=== PATIENT | female | born 1965 | race Caucasian/White ===

== ENCOUNTER 2017-08-06 12:39 | Inpatient (IN) ==
[2017-08-06] MEDS ORDERED: *HR* LORazepam 2 MG/ML VIAL IM ONE ×3 (12:43→20:57)
[2017-08-06] MEDS ORDERED: Haloperidol Lactate 5 MG/ML VIAL IM ONE ×2 (12:44→20:08)
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
[2017-08-06 13:13] LABS: Bilirubin,Urine Negative (Negative); Blood,Urine Negative (Negative); Clarity,Urine Cloudy (Clear); Color,Urine Yellow (Yellow); Glucose,Urine (UA) Normal (Normal); Ketones,Urine Negative (Negative); Leukocyte Esterase,Urine Negative (Negative); Nitrite,Urine Negative (Negative); PH,Urine 5.5 pH Units (5.0-8.0); Protein,Urine 100 mg/dL (Neg-Trace); Urobilinogen,Urine Normal (Normal)
[2017-08-06 13:15] LABS: Bacteria,Urine None Seen per hpf (None-Few); Hyaline Casts,Urine Few per lpf (None-Few); RBC,Urine 0-3 per hpf (0-3); Squamous Epithelial Cell,Urine Many per lpf (None-Few)
[2017-08-06 13:18] LABS: Basophils % 0.3 %; Eosinophils % 0.3 %; Hematocrit 37.9 % (35.3-44.9); Hemoglobin 13.1 g/dL (11.5-15.4); Immature Granulocytes % 0.5 % (0-4); Lymphocytes # 0.9 K/mcL (0.6-4.6); Mean Corpuscular HGB Conc 34.6 g/dL (31.6-35.5); Mean Corpuscular Hemoglobin 33.2 pg (28.0-33.3); Mean Corpuscular Volume 95.9 fL (83.0-100.0); Mean Platelet Volume 10.1 fL (9.4-12.4); Monocytes # 0.4 K/mcL (0.0-1.3); Monocytes % 3.6 %; Neutrophils # 8.7 K/mcL (1.6-8.9); Platelet Count 218 K/mcL (140-400); Red Blood Count 3.95 M/mcL (3.82-4.97); Segmented Neutrophils % 86.3 %
[2017-08-06 13:35] LABS: BUN/Creatinine Ratio 18 (6-26); Blood Urea Nitrogen 18 mg/dL (6-20); Carbon Dioxide 16 mEq/L (23-29); Chloride 112 mEq/L (98-107); Glucose 133 mg/dL (70-105); Osmolality,Calculated 292 (280-300); Potassium 3.6 mEq/L (3.5-5.1); Sodium 139 mEq/L (136-145); eGFR For African Americans > 60 (> 60); eGFR For Non-African Americans 59 (> 60)
[2017-08-06 14:18] LABS: Amphetamine Screen,Urine Negative ng/mL (Cutoff=1000); Barbiturate Screen,Urine Negative ng/mL (Cutoff=200); Benzodiazepines Screen,Urine Negative ng/mL (Cutoff=200); Cannabinoid Screen,Urine Negative ng/mL (Cutoff = 50); Cocaine Screen,Urine Negative ng/mL (Cutoff= 300); Opiate Screen,Urine Negative ng/mL (Cutoff=300); Phencyclidine Screen,Urine Negative ng/mL (Cutoff=25)
[2017-08-06 15:03] LABS: Acetaminophen < 10 mcg/mL (10-20); Ethanol < 10 mg/dL (Less than 10); Salicylate < 2.5 mg/dL (15.0-30.0)
[2017-08-06] MEDS ORDERED: *HR* LORazepam 1 MG TABLET PO ONE (15:29)
[2017-08-06] MEDS ORDERED: Ziprasidone injection 20 MG/ML VIAL IM ONE (17:31)
[2017-08-06] MEDS ORDERED: *HR* LORazepam 2 MG/ML VIAL ONE (19:42)
[2017-08-06] MEDS ORDERED: traZODone 50 MG TABLET PO PRN (21:43)
[2017-08-06] MEDS ORDERED: MOM Conc 10 ML UD.LIQ PO PRN (21:43)
[2017-08-06] MEDS ORDERED: *HR* LORazepam 2 MG/ML VIAL IM PRN (21:43)
[2017-08-06] MEDS ORDERED: Mag Hydrox/Al Hydrox/Simeth 30 ML UDC PO PRN (21:43)
[2017-08-06] MEDS ORDERED: Haloperidol Lactate 5 MG/ML VIAL IM PRN (21:43)
[2017-08-07] MEDS: Levothyroxine 25 MCG TABLET PO SCH (06:35)
[2017-08-07] MEDS: *HR* LORazepam 1 MG TABLET PO PRN ×2 (07:37→13:51)
[2017-08-07] MEDS: Loratadine 10 MG TABLET PO SCH (09:06)
[2017-08-07] MEDS: Topiramate 25 MG TABLET PO SCH ×2 (09:06→22:58)
[2017-08-07] MEDS: Cholecalciferol (D-3) 1,000 UNIT TABLET PO SCH (09:06)
[2017-08-07] MEDS: Aspirin Enteric Coated 81 MG Tablet PO SCH (09:06)
[2017-08-07] MEDS: *HR* Metformin 500 MG TABLET PO SCH ×2 (09:07→17:04)
[2017-08-07] MEDS: Fluticasone Propionate Nasal 50 MCG/SPRAY BOTTLE NS SCH (09:09)
[2017-08-07] MEDS: LOPREEZA PO SCH (09:09)
[2017-08-07] MEDS: Cholestyramine 4 GM POWD.PACK PO SCH (09:09)
[2017-08-07] MEDS: tiZANidine 4 MG TABLET PO SCH ×2 (09:34→20:46)
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
[2017-08-07] MEDS: Famotidine 20 MG TABLET PO SCH (20:46)
[2017-08-08] MEDS: Levothyroxine 25 MCG TABLET PO SCH (06:46)
[2017-08-08] MEDS: *HR* Metformin 500 MG TABLET PO SCH ×2 (08:37→17:21)
[2017-08-08] MEDS: Loratadine 10 MG TABLET PO SCH (08:38)
[2017-08-08] MEDS: Topiramate 25 MG TABLET PO SCH ×2 (08:38→20:50)
[2017-08-08] MEDS: tiZANidine 4 MG TABLET PO SCH ×2 (08:39→20:49)
[2017-08-08] MEDS: Aspirin Enteric Coated 81 MG Tablet PO SCH (08:39)
[2017-08-08] MEDS: Cholecalciferol (D-3) 1,000 UNIT TABLET PO SCH (08:40)
[2017-08-08] MEDS: Cholestyramine 4 GM POWD.PACK PO SCH (08:40)
[2017-08-08] MEDS: LOPREEZA PO SCH (08:40)
[2017-08-08] MEDS: Fluticasone Propionate Nasal 50 MCG/SPRAY BOTTLE NS SCH (08:41)
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
[2017-08-08] MEDS: *HR* LORazepam 1 MG TABLET PO PRN (12:18)
[2017-08-08] MEDS: Famotidine 20 MG TABLET PO SCH (20:44)
[2017-08-08] MEDS: hydrOXYzine pamoate 25 MG CAPSULE PO PRN (20:53)
[2017-08-08] MEDS: Acetaminophen 325 MG TABLET PO PRN (20:53)
[2017-08-09] MEDS: Levothyroxine 25 MCG TABLET PO SCH (06:27)
[2017-08-09] MEDS: Topiramate 25 MG TABLET PO SCH ×2 (08:21→21:09)
[2017-08-09] MEDS: Aspirin Enteric Coated 81 MG Tablet PO SCH (08:21)
[2017-08-09] MEDS: Cholecalciferol (D-3) 1,000 UNIT TABLET PO SCH (08:21)
[2017-08-09] MEDS: *HR* Metformin 500 MG TABLET PO SCH ×2 (08:21→17:04)
[2017-08-09] MEDS: Loratadine 10 MG TABLET PO SCH (08:21)
[2017-08-09] MEDS: tiZANidine 4 MG TABLET PO SCH ×2 (08:22→21:10)
[2017-08-09] MEDS: LOPREEZA PO SCH (08:23)
[2017-08-09] MEDS: Fluticasone Propionate Nasal 50 MCG/SPRAY BOTTLE NS SCH (08:25)
[2017-08-09] MEDS: Cholestyramine 4 GM POWD.PACK PO SCH (08:25)
[2017-08-09] MEDS: hydrOXYzine pamoate 25 MG CAPSULE PO PRN (09:15)
[2017-08-09] MEDS: Acetaminophen 325 MG TABLET PO PRN ×2 (09:16→21:27)
[2017-08-09] MEDS: *HR* LORazepam 1 MG TABLET PO PRN (10:13)
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
[2017-08-09] MEDS: hydrOXYzine pamoate 25 MG CAPSULE PO SCH ×2 (15:58→21:10)
[2017-08-09] MEDS: Famotidine 20 MG TABLET PO SCH (21:10)
[2017-08-10] MEDS: Cholestyramine 4 GM POWD.PACK PO SCH (09:12)
[2017-08-10] MEDS: hydrOXYzine pamoate 25 MG CAPSULE PO SCH ×3 (09:15→21:10)
[2017-08-10] MEDS: Acetaminophen 325 MG TABLET PO PRN ×2 (09:15→21:10)
[2017-08-10] MEDS: Cholecalciferol (D-3) 1,000 UNIT TABLET PO SCH (09:16)
[2017-08-10] MEDS: *HR* Metformin 500 MG TABLET PO SCH ×2 (09:16→17:43)
[2017-08-10] MEDS: Loratadine 10 MG TABLET PO SCH (09:16)
[2017-08-10] MEDS: Levothyroxine 25 MCG TABLET PO SCH (09:16)
[2017-08-10] MEDS: Aspirin Enteric Coated 81 MG Tablet PO SCH (09:16)
[2017-08-10] MEDS: Topiramate 25 MG TABLET PO SCH ×2 (09:16→21:09)
[2017-08-10] MEDS: tiZANidine 4 MG TABLET PO SCH ×2 (09:17→21:09)
[2017-08-10] MEDS: Fluticasone Propionate Nasal 50 MCG/SPRAY BOTTLE NS SCH (09:19)
[2017-08-10] MEDS: LOPREEZA PO SCH (09:20)
--- NOTE | 2017-08-10 11:36 | Psychiatry Progress Note ---
Date of Encounter: 08/10/17 Time of Encounter: 08:35 Subjective Interval history: Patient is seen today for follow-up. She becomes very anxious when talking to this provider. She is fixated on getting out by Sunday of next week for a surgery. She states that she talk to her mom last night and her mom states that she can come home. Patient remains very focused on going back home to her mother's and not back to [place]. She is unable to answer further questions about her mood, sleep, appetite. She repeats her self multiple times and becomes very anxious and tearful. Attempted to encourage positive coping strategies and focusing on goals here in the hospital including: Trying focus on how to calm herself and using coping strategies, working with family on reasonable plan for discharge. Review of Systems ROS limited: due to patient condition (Due to patient's cognitive functioning level and agitation level.) Psychiatric: Reports: depression, anxiety, difficulty concentrating, irritability, panic attacks Results - Vital Signs Vital Signs: Temp Pulse Resp BP Pulse Ox 98.8 F 81 20 118/73 100 08/10/17 09:00 08/10/17 09:00 08/10/17 09:00 08/10/17 09:00 08/06/17 17:42 - Labs Labs: Laboratory Results - last 24 hr 08/09/17 08/10/17 20:24 08:46 POC Glucose 90 170 H Assessment and Plan (1) Bipolar disorder Current visit: Yes Status: Acute Plan: Continue hospitalization, Close observation, Suicide Precautions per unit protocol, Encourage participation in unit milieu, Group Therapy, Monitor sleep, Monitor appetite Additional Plan: Continue Lexapro for now. Continue to focus on safety discharge plan. Consider mood stabilizer if patient does not respond to Vistaril and increase the Lexapro. Risks, benefits, side effects, alternatives discussed w/pt: Yes Patient agreeable to treatment: Yes Qualifiers: Active/Remission status: currently active Current bipolar episode type: mixed Current episode severity: severe Psychotic features: with psychotic features Qualified Code(s): F31.64 - Bipolar disorder, current episode mixed, severe, with psychotic features (2) Anxiety Current visit: Yes Status: Acute Plan: Continue hospitalization, Close observation, Suicide Precautions per unit protocol, Encourage participation in unit milieu, Group Therapy, Monitor sleep, Monitor appetite Additional Plan: Continue low dose of Vistaril for agitation and anxiety. Risks, benefits, side effects, alternatives discussed w/pt: Yes Patient agreeable to treatment: Yes (3) Mental retardation Current visit: Yes Status: Chronic Consult Discharge Plan - Plan Referrals: Providers, for Healthy Living [Other] (You will see Shy for outpatient mental health counseling services on . You will see Dr. Escalona for outpatient psychiatric assessment and medication management services on .) Psychiatry Exam - Constitutional Vitals: Temp Pulse Resp BP Pulse Ox 98.8 F 81 20 118/73 100 08/10/17 09:00 08/10/17 09:00 08/10/17 09:00 08/10/17 09:00 08/06/17 17:42 General appearance: well-groomed, thin - Musculoskeletal Gait: normal Station: stiff Strength & Tone: normal for patient - Psychiatric Patient Orientation: Yes Person, Yes Time, Yes Place, Yes Circumstance Level of alertness: Alert Behavior: anxious, tearful, distractible Psychomotor activity: Increased Eye Contact: Intense Contact Mood Description: Euthymic/stable Affect description: labile, tearful, dysphoric, anxious Speech Volume: Loud Speech pattern: rambling, excessive Language & Vocabulary: limited Thought Process: Perseveration, [place] Thought Content: No Suicidal ideation, No Homicidal ideation Perceptual Disturbances: No Auditory hallucinations, No Visual hallucinations Attention Span Ability: Capable of Focused Attention, Capable of Sustained Attention Memory Description: Immediate Intact Patient Reliability: Not Reliable Historian Fund of knowledge: No abstraction ability, Yes below average, Yes aware of current events Intelligence Estimate: Below Average Judgment: Limited Insight: Minimal
[2017-08-10] MEDS: Famotidine 20 MG TABLET PO SCH (21:10)
[2017-08-11] MEDS: Cholestyramine 4 GM POWD.PACK PO SCH (09:18)
[2017-08-11] MEDS: Topiramate 25 MG TABLET PO SCH ×2 (09:20→20:39)
[2017-08-11] MEDS: Aspirin Enteric Coated 81 MG Tablet PO SCH (09:20)
[2017-08-11] MEDS: tiZANidine 4 MG TABLET PO SCH ×2 (09:20→20:39)
[2017-08-11] MEDS: Acetaminophen 325 MG TABLET PO PRN ×2 (09:20→20:38)
[2017-08-11] MEDS: hydrOXYzine pamoate 25 MG CAPSULE PO SCH ×3 (09:21→20:39)
[2017-08-11] MEDS: Cholecalciferol (D-3) 1,000 UNIT TABLET PO SCH (09:21)
[2017-08-11] MEDS: *HR* Metformin 500 MG TABLET PO SCH ×2 (09:21→16:20)
[2017-08-11] MEDS: Loratadine 10 MG TABLET PO SCH (09:22)
[2017-08-11] MEDS: Fluticasone Propionate Nasal 50 MCG/SPRAY BOTTLE NS SCH (09:22)
[2017-08-11] MEDS: Levothyroxine 25 MCG TABLET PO SCH (09:22)
[2017-08-11] MEDS: LOPREEZA PO SCH (09:23)
[2017-08-11] MEDS: Preparation H Ointment 30 GM TUBE RC SCH (16:23)
--- NOTE | 2017-08-11 17:09 | Psychiatry Progress Note ---
Date of Encounter: 08/11/17 Time of Encounter: 14:40 Subjective Interval history: Pt is a 51 yo, Developmentally delayed , female, who presents for irritability, mood and depression. Pt noted that she feels she is doing great. Pt noted she is optimistic to return home with her mommy. Pt denied any side effects to current medications. Pt noted she felt safe and comfortable on the unit. Pt was in agreement with treatment plan. Pt noted that she is doing pretty good today. Pt noted she slept 8 hours last night. Pt noted her appetite is okay. Pt rated her depression a 0, on a scale of zero to ten with ten being the worst and zero being none. Pt rate her anxiety a 2, on the same scale. Pt denied any auditory or visual. Pt denied any thoughts to harm herself or anyone else. Tobacco: Denies Alcohol: Denies Street: Denies Caffeine: Denies MSE: Alert and Oriented to self and location only Appearance: appropriately groomed dressed in hospital pajamas Behavior: hypomanic , agitated, and euphoric at time, inappropriate to situation. Speech: elevated almost pressured, increase tone, increase rate Mood: great Affect: labile Thought content: no HI noted, no SI noted, no delusions noted Psychosis: questionable, currently does not appear to be responding to internal stimuli. Thought Process: significant reduction in neurocognition, tangential Judgment: poor. Insight: poor. 1.Interval hx 2.Continue current medications 3.Review current labs 4.Pt had an opportunity to ask questions and discuss current treatment plan. 5.Supportive therapy was provided 6.Pt encouraged to consider group or individual therapy 7.Pt was in agreement with treatment plan. 8.Pt was educated on the risks benefits and side effects of current medications. 9.Continue to coordinate discharge planning. Review of Systems Psychiatric: Reports: depression, anxiety, difficulty concentrating, irritability, panic attacks Results - Vital Signs Vital Signs: Temp Pulse Resp BP Pulse Ox 97.9 F 85 18 116/81 100 08/11/17 09:00 08/11/17 09:00 08/11/17 09:00 08/11/17 09:00 08/06/17 17:42 - Labs Labs: Laboratory Results - last 24 hr 08/10/17 08/11/17 20:28 09:12 POC Glucose 112 H 152 H Consult Discharge Plan - Plan Referrals: Providers, for Healthy Living [Other] (You will see Shy for outpatient mental health counseling services on . You will see Dr. Escalona for outpatient psychiatric assessment and medication management services on .) Psychiatry Exam - Constitutional Vitals: Temp Pulse Resp BP Pulse Ox 97.9 F 85 18 116/81 100 08/11/17 09:00 08/11/17 09:00 08/11/17 09:00 08/11/17 09:00 08/06/17 17:42
[2017-08-11] MEDS: Famotidine 20 MG TABLET PO SCH (20:39)
[2017-08-12] MEDS: tiZANidine 4 MG TABLET PO SCH ×2 (09:30→20:50)
[2017-08-12] MEDS: Acetaminophen 325 MG TABLET PO PRN ×3 (09:30→20:49)
[2017-08-12] MEDS: Cholestyramine 4 GM POWD.PACK PO SCH (09:30)
[2017-08-12] MEDS: Aspirin Enteric Coated 81 MG Tablet PO SCH (09:31)
[2017-08-12] MEDS: hydrOXYzine pamoate 25 MG CAPSULE PO SCH ×3 (09:31→20:50)
[2017-08-12] MEDS: Cholecalciferol (D-3) 1,000 UNIT TABLET PO SCH (09:31)
[2017-08-12] MEDS: Loratadine 10 MG TABLET PO SCH (09:32)
[2017-08-12] MEDS: *HR* Metformin 500 MG TABLET PO SCH ×2 (09:32→16:52)
[2017-08-12] MEDS: Levothyroxine 25 MCG TABLET PO SCH (09:32)
[2017-08-12] MEDS: Topiramate 25 MG TABLET PO SCH ×2 (09:32→20:50)
[2017-08-12] MEDS: LOPREEZA PO SCH (09:33)
[2017-08-12] MEDS: Fluticasone Propionate Nasal 50 MCG/SPRAY BOTTLE NS SCH (09:33)
[2017-08-12] MEDS: Preparation H Ointment 30 GM TUBE RC SCH ×2 (09:33→22:07)
--- NOTE | 2017-08-12 14:08 | Psychiatry Progress Note ---
Date of Encounter: 08/12/17 Time of Encounter: 13:40 Subjective Interval history: Pt is a 51 yo, Developmentally delayed , female, who presents for irritability, mood and depression. Pt noted that she feels she is great ready to go home..... Pt noted she is optimistic to return home with her mommy...and stay in [place]. Pt denied any side effects to current medications. Pt noted she felt safe and comfortable on the unit. Pt was in agreement with treatment plan. Pt noted that she is doing pretty good today. Pt noted she slept 8 hours last night. Pt noted her appetite is okay. Pt rated her depression a 0, on a scale of zero to ten with ten being the worst and zero being none. Pt rate her anxiety a 2, on the same scale. Pt denied any auditory or visual. Pt denied any thoughts to harm herself or anyone else. Tobacco: Denies Alcohol: Denies Street: Denies Caffeine: Denies MSE: Alert and Oriented to self and location only Appearance: appropriately groomed dressed in hospital pajamas Behavior: hypomanic , agitated, and euphoric at time, inappropriate to situation. Speech: elevated almost pressured, increase tone, increase rate Mood: great Affect: labile Thought content: no HI noted, no SI noted, no delusions noted Psychosis: none noted, currently does not appear to be responding to internal stimuli. Thought Process: significant reduction in neurocognition, tangential Judgment: poor. Insight: poor. 1.Interval hx 2.Continue current medications 3.Review current labs 4.Pt had an opportunity to ask questions and discuss current treatment plan. 5.Supportive therapy was provided 6.Pt encouraged to consider group or individual therapy 7.Pt was in agreement with treatment plan. 8.Pt was educated on the risks benefits and side effects of current medications. 9.Continue to coordinate discharge planning. Review of Systems Psychiatric: Reports: depression, anxiety, difficulty concentrating, irritability, panic attacks Results - Vital Signs Vital Signs: Temp Pulse Resp BP Pulse Ox 97.8 F 66 14 107/68 100 08/12/17 09:00 08/12/17 09:00 08/12/17 09:00 08/12/17 09:00 08/06/17 17:42 - Labs Labs: Laboratory Results - last 24 hr 08/11/17 08/12/17 20:37 09:20 POC Glucose 119 H 110 H Assessment and Plan (1) Anxiety Current visit: Yes Status: Acute Risks, benefits, side effects, alternatives discussed w/pt: Yes Patient agreeable to treatment: Yes (2) Bipolar disorder Current visit: Yes Status: Acute Risks, benefits, side effects, alternatives discussed w/pt: Yes Patient agreeable to treatment: Yes Qualifiers: Active/Remission status: currently active Current bipolar episode type: mixed Current episode severity: severe Psychotic features: with psychotic features Qualified Code(s): F31.64 - Bipolar disorder, current episode mixed, severe, with psychotic features (3) Mental retardation Current visit: Yes Status: Chronic Consult Discharge Plan - Plan Referrals: Providers, for Healthy Living [Other] (You will see Shy for outpatient mental health counseling services on . You will see Dr. Escalona for outpatient psychiatric assessment and medication management services on .) Psychiatry Exam - Constitutional Vitals: Temp Pulse Resp BP Pulse Ox 97.8 F 66 14 107/68 100 08/12/17 09:00 08/12/17 09:00 08/12/17 09:00 08/12/17 09:00 08/06/17 17:42
[2017-08-12] MEDS: Famotidine 20 MG TABLET PO SCH (20:50)
[2017-08-12] MEDS: Desitin (Zinc Oxide) 56 GM TUBE TP PRN (22:01)
[2017-08-13] MEDS: Cholecalciferol (D-3) 1,000 UNIT TABLET PO SCH (08:41)
[2017-08-13] MEDS: Cholestyramine 4 GM POWD.PACK PO SCH (08:42)
[2017-08-13] MEDS: Aspirin Enteric Coated 81 MG Tablet PO SCH (08:42)
[2017-08-13] MEDS: hydrOXYzine pamoate 25 MG CAPSULE PO SCH ×4 (08:42→21:01)
[2017-08-13] MEDS: Levothyroxine 25 MCG TABLET PO SCH (08:43)
[2017-08-13] MEDS: Loratadine 10 MG TABLET PO SCH (08:43)
[2017-08-13] MEDS: Acetaminophen 325 MG TABLET PO PRN ×2 (08:44→21:28)
[2017-08-13] MEDS: tiZANidine 4 MG TABLET PO SCH ×2 (08:45→21:03)
[2017-08-13] MEDS: LOPREEZA PO SCH (08:46)
[2017-08-13] MEDS: Fluticasone Propionate Nasal 50 MCG/SPRAY BOTTLE NS SCH (08:49)
[2017-08-13] MEDS: *HR* Metformin 500 MG TABLET PO SCH ×2 (08:51→16:32)
[2017-08-13] MEDS: Topiramate 25 MG TABLET PO SCH ×2 (09:36→21:02)
[2017-08-13] MEDS: Preparation H Ointment 30 GM TUBE RC SCH ×2 (10:25→11:33)
[2017-08-13] MEDS: carBAMazepine 200 MG TABLET PO SCH ×2 (10:28→20:58)
[2017-08-13] MEDS: Desitin (Zinc Oxide) 56 GM TUBE TP PRN (11:32)
--- NOTE | 2017-08-13 12:41 | Psychiatry Progress Note ---
Date of Encounter: 08/13/17 Time of Encounter: 12:30 Subjective Interval history: Pt is a 51 yo, Developmentally delayed , female, who presents for irritability, mood and depression. Pt noted that she feels she is great..... Pt noted she is upset about going to "[place], [place] to assisted living facility. Pt denied any side effects to current medications. Pt noted she felt safe and comfortable on the unit. Pt noted that she is doing pretty good today. Pt noted she slept 8 hours last night. Pt noted her appetite is okay. Pt rated her depression a 0, on a scale of zero to ten with ten being the worst and zero being none. Pt rate her anxiety a 2, on the same scale. Pt denied any auditory or visual. Pt denied any thoughts to harm herself or anyone else. Tobacco: Denies Alcohol: Denies Street: Denies Caffeine: Denies MSE: Alert and Oriented to self and location only, DD Appearance: appropriately groomed dressed in hospital pajamas Behavior: hypomanic , agitated, and euphoric at time, inappropriate to situation. Speech: elevated almost pressured, increase tone, increase rate Mood: great Affect: labile Thought content: no HI noted, no SI noted, no delusions noted Psychosis: none noted, currently does not appear to be responding to internal stimuli. Thought Process: significant reduction in neurocognition, tangential Judgment: poor. Insight: poor. 1.Interval hx 2.Continue current medications 3.Review current labs 4.Pt had an opportunity to ask questions and discuss current treatment plan. 5.Supportive therapy was provided 6.Pt encouraged to consider group or individual therapy 7.Pt was in agreement with treatment plan. 8.Pt was educated on the risks benefits and side effects of current medications. 9.Continue to coordinate discharge planning, pt to go to Assisted facility in [place], [place]. Review of Systems Psychiatric: Reports: depression, anxiety, difficulty concentrating, irritability, panic attacks Results - Vital Signs Vital Signs: Temp Pulse Resp BP Pulse Ox 98.3 F 90 18 110/79 100 08/13/17 09:00 08/13/17 09:00 08/13/17 09:00 08/13/17 09:00 08/06/17 17:42 - Labs Labs: Laboratory Results - last 24 hr 05/13/18 05/14/18 20:35 08:20 POC Glucose 126 H 116 H Assessment and Plan (1) Anxiety Current visit: Yes Status: Acute Risks, benefits, side effects, alternatives discussed w/pt: Yes Patient agreeable to treatment: Yes (2) Bipolar disorder Current visit: Yes Status: Acute Risks, benefits, side effects, alternatives discussed w/pt: Yes Patient agreeable to treatment: Yes Qualifiers: Active/Remission status: currently active Current bipolar episode type: mixed Current episode severity: severe Psychotic features: with psychotic features Qualified Code(s): F31.64 - Bipolar disorder, current episode mixed, severe, with psychotic features (3) Mental retardation Current visit: Yes Status: Chronic Consult Discharge Plan - Plan Referrals: Providers, for Healthy Living [Other] - 08/23/17 11:00 am (You will see Shy for outpatient mental health counseling services on 08/23/2017 at 11:00am. You will see Dr. Escalona for outpatient psychiatric assessment and medication management services on 0.09/12/2017 at 9:00am. The above appointments reflect first availability. You may contact the office regularly to check for cancellations that may allow you to be seen sooner.) Psychiatry Exam - Constitutional Vitals: Temp Pulse Resp BP Pulse Ox 98.3 F 90 18 110/79 100 08/13/17 09:00 08/13/17 09:00 08/13/17 09:00 08/13/17 09:00 08/06/17 17:42 General appearance: age & developmentally appropriate - Musculoskeletal Gait: normal Strength & Tone: normal for patient - Psychiatric Patient Orientation: Yes Person, Yes Place Level of alertness: Alert Behavior: anxious, tearful, agitated, distractible, impulsive, talkative Psychomotor activity: Increased Eye Contact: Maintains Eye Contact Mood Description: Anxious, Elevated, Expansive, Labile Affect description: full range, euthymic, tearful Speech pattern: fluent, excessive, pressured, repetetive Language & Vocabulary: consistent with education Thought Process: Circumstantial Thought Content: Yes Preoccupation Attention Span Ability: Unable to Focus Memory Description: Immediate Intact Patient Reliability: Questionable Historian Fund of knowledge: Yes below average Intelligence Estimate: Below Average Judgment: Poor Insight: Minimal
[2017-08-13] MEDS ORDERED: *HR* LORazepam 2 MG/ML VIAL IM ONE (12:57)
[2017-08-13] MEDS ORDERED: Haloperidol Lactate 5 MG/ML VIAL IM ONE (12:57)
[2017-08-13] MEDS: Famotidine 20 MG TABLET PO SCH (21:01)
[2017-08-14] MEDS: Levothyroxine 25 MCG TABLET PO SCH (06:25)
[2017-08-14] MEDS: Cholestyramine 4 GM POWD.PACK PO SCH (08:49)
[2017-08-14] MEDS: Fluticasone Propionate Nasal 50 MCG/SPRAY BOTTLE NS SCH (08:49)
[2017-08-14] MEDS: Aspirin Enteric Coated 81 MG Tablet PO SCH (08:50)
[2017-08-14] MEDS: Topiramate 25 MG TABLET PO SCH (08:51)
[2017-08-14] MEDS: *HR* Metformin 500 MG TABLET PO SCH (08:51)
[2017-08-14] MEDS: carBAMazepine 200 MG TABLET PO SCH (08:51)
[2017-08-14] MEDS: Cholecalciferol (D-3) 1,000 UNIT TABLET PO SCH (08:51)
[2017-08-14] MEDS: Loratadine 10 MG TABLET PO SCH (08:51)
[2017-08-14] MEDS: tiZANidine 4 MG TABLET PO SCH (08:51)
[2017-08-14] MEDS: hydrOXYzine pamoate 25 MG CAPSULE PO SCH (08:51)
[2017-08-14] MEDS: LOPREEZA PO SCH (08:52)
[2017-08-14] MEDS: Acetaminophen 325 MG TABLET PO PRN (08:58)
[2017-08-14] MEDS: Preparation H Ointment 30 GM TUBE RC SCH (08:59)
[2017-08-14] MEDS: Desitin (Zinc Oxide) 56 GM TUBE TP PRN (09:01)
[2017-08-14 09:49] VITALS: BP 109/71
[2017-08-14] MEDS ORDERED: ChlorproMAZINE 25 MG/ML AMPUL IM ONE ×2 (09:54→10:11)
[2017-08-14] MEDS ORDERED: *HR* LORazepam 2 MG/ML VIAL IM ONE ×2 (09:55→10:11)
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
== END 2017-08-14 11:20 | DRG 885 ==
LOC: EMEROO 12:39 → 1ANU 19:23 → SUATTDRO 19:23 → 1ANU 22:23
PROVIDERS: ADMIT Student in an Organized Health Care Education/Training Program; ATTEND General Practice